=== PATIENT | female | born 1970 ===

== ENCOUNTER 2025-02-13 09:38 | Outpatient (CLI) | payer OTHER ==
[~2025-02-13 09:38] MED LIST: AMLODIPINE-VAL1 EAC2
== END 2025-02-13 09:45 | disposition home or self-care (01) ==
LOC: SONOGRAMA 09:38
PROVIDERS: ATTEND Internal Medicine Rheumatology
DX: M65.812 Other synovitis and tenosynovitis, left shoulder (principal)

== ENCOUNTER 2025-02-28 07:34 | Outpatient (CLI) | payer OTHER | END 2025-02-28 07:35 | disposition home or self-care (01) | LOC: NUCLEAR 07:34 | PROVIDERS: ATTEND Internal Medicine Rheumatology | DX: M25.50 Pain in unspecified joint (principal) ==